=== PATIENT | male | born 1995 | race Caucasian/White ===

== ENCOUNTER 2017-12-03 15:24 | Emergency (ER) | payer OTHER ==
[2017-12-03] MEDS ORDERED: Lidocaine 1% w/Epinephrine 1:100K 20 ML VIAL ONE (15:28)
--- NOTE | 2017-12-03 15:58 | RAD ---
CHEST 1 VIEW: HISTORY: A 22-year-old male with a history of right-sided chest pain. Patient with spontaneous right-side pne umothorax. FINDINGS: There is a small right-sided pneumothorax primarily in the apical region. Heart size is normal. The left lung is clear. No significant associated right lung atelectasis or tension. IMPRESSION: Small right-sided pneumothorax, primarily apical. A call was made to the emergency room, Dr. Silva was in the patient's room putting in a small chest tube at the time of the phone call according to the nurse taking the call. CODE CR POS: OFF
--- NOTE | 2017-12-03 17:10 | RAD ---
ONE VIEW CHEST: Comparison: 12-03-17 History: Right sided pneumothorax, status post chest tube placement. FINDINGS: Interval placement of small bore chest tube in the right hemithorax. Essentially stable right sided p neumothorax. Stable aeration of the lung parenchyma. Stable cardiac silhouette. IMPRESSION: Interval placement of small bore chest tube in the right hemithorax. Persistent right sided pneumotho rax. Results discussed with Dr. Silva on 12-03-17 at 4:36 p.m. Code CR POS: FIORELLA
== END 2017-12-03 16:16 | disposition home or self-care (01) ==
LOC: ERS 15:24
DX: J93.83 Other pneumothorax (principal)
CPT/HCPCS: 32555; 71045; J2001

== ENCOUNTER 2017-12-05 12:16 | Outpatient (CLI) | payer OTHER ==
--- NOTE | 2017-12-05 14:28 | RAD ---
CHEST PA AND LATERAL: History: 22-year-old male with history of dyspnea. FINDINGS: Two views of the chest demonstrate a large pneumothorax which has developed in the right chest with a small heimlich valve in place. The pneumothorax has increased from 2-19-18. Heart size is normal. Th e left lung is clear. IMPRESSION: There is very slight shift of the heart and mediastinum to the left but no significant tension. There is a small amount of fluid in the inferior right pleural space. The left chest is stable. IMPRESSION: Interval increase in size in the previously noted right sided pneumothorax to a large pneumothorax wi th very slight shift of mediastinum and heart to the left and slight flattening of the right hemidiap hragm. Dr. Mendoza's office was contacted and they indicated that he was seeing the patient and had seen the p neumothorax and was treating the patient in that regard. POS: FIORELLA
== END 2017-12-05 12:17 | disposition home or self-care (01) ==
LOC: RAD 12:16
PROVIDERS: ATTEND Thoracic Surgery (Cardiothoracic Vascular Surgery)
DX: J93.9 Pneumothorax, unspecified (principal); J98.6 Disorders of diaphragm
CPT/HCPCS: 71046

== ENCOUNTER 2017-12-06 07:52 | Inpatient (IN) | payer OTHER ==
[2017-12-06] MEDS ORDERED: Bupivacaine 0.5% 10 ML VIAL ONE (08:58)
[2017-12-06] MEDS ORDERED: Lidocaine 1% w/Epinephrine 1:200K 30 ML VIAL ONE (08:58)
--- NOTE | 2017-12-06 09:39 | OP ---
DATE OF PROCEDURE: 12/06/2017 PREOPERATIVE DIAGNOSIS: Spontaneous right pneumothorax with failure of right lung to reexpand with c onservative therapy. POSTOPERATIVE DIAGNOSIS: Spontaneous right pneumothorax with failure of right lung to reexpand with conservative therapy. PROCEDURES: Right thoracoscopy with apical bleb resection and mechanical pleurodesis. SURGEON: Mandeep Mendoza M.D. ANESTHESIA: General endotracheal - Niranjan Stack D.O. ESTIMATED BLOOD LOSS: Minimal. SPECIMEN: Right apex. DESCRIPTION OF PROCEDURE: After consent was obtained, the patient was brought to the operating room and placed in the supine position on the operating room table. Appropriate anesthetic monitor was pl aced and general endotracheal anesthesia induced. The patient was placed in the left lateral decubit us position. Joints were appropriately padded. SCDs were used. Right chest wall was prepped and dr aped in usual sterile fashion. Skin incision was made in the anterior axillary line approximately si xth interspace and the chest sharply entered. Thoracoscope was inserted and the chest explored. Two separate ports were placed for instrumentation. An apical bleb was noted. This was stapled with th e PALMER stapler. Specimen was removed. There were no other blebs or other areas of air leak noted. T he chest was mechanically abraded. A 28 [place] chest tube was placed through the anterior incision. Lungs were inflated under direct vision and filled the chest cavity nicely. The other port incision s were closed with interrupted Vicryl suture. Sterile dressings were applied. The patient was awake daren, extubated, and transferred to the recovery room in stable condition.
[2017-12-06] MEDS ORDERED: Ondansetron HCl/PF 4 MG/2 ML Vial IVP PRN (10:15)
[2017-12-06] MEDS ORDERED: Fentanyl 100 MCG/2 ML VIAL SLOW IVP PRN (10:15)
[2017-12-06] MEDS ORDERED: HYDROcodone/Acetaminophen 5/325 mg Tablet PO PRN ×2 (10:15)
[2017-12-06] MEDS ORDERED: Promethazine HCl 25 MG/ML VIAL IM PRN (10:15)
--- NOTE | 2017-12-06 10:28 | RAD ---
AP VIEW OF THE CHEST: INDICATION: Assess post thoracotomy. COMPARISON: Prior study dated 12/05/17 at 12:41 p.m. FINDINGS: There has been interval placement of a large-bore right-sided chest tube. The tip of the chest tube projects to the right upper hemithorax. There is a moderate-size right-sided pneumothorax which has improved since placement of the large-bore thoracostomy tube. There are pneumonectomy changes involv ing the right lung apex. Previously seen anterior based thoracostomy tube has been removed. The lef t lung is clear. Cardiomediastinal silhouette is normal. No acute osseous abnormality is evident. IMPRESSION: 1. Interval exchange to a large-bore right-sided thoracostomy tube with improvement in the right-monique ed pneumothorax. Moderate residual pneumothorax remains. 2. Post procedure changes of the right apical pneumonectomy. Continued followup is recommended. POS: FIORELLA
[2017-12-06] MEDS ORDERED: CEFAZOLIN/Water 2 GM/20 ML SYRINGE SLOW IVP SCH (11:00)
[2017-12-06 11:26] VITALS: BMI 20.9
[2017-12-06] MEDS: Ketorolac Tromethamine 30 MG/ML VIAL IVP SCH ×2 (12:11→17:26)
[2017-12-06] MEDS ORDERED: Dexamethasone 20 MG/5 ML VIAL ONE (16:38)
[2017-12-06] MEDS ORDERED: Glycopyrrolate 0.2 MG/ML 5 ML SYRINGE ONE (16:38)
[2017-12-06] MEDS ORDERED: Lidocaine 1% PF 5 ML VIAL ONE (16:38)
[2017-12-06] MEDS ORDERED: Propofol 200 MG/20 ML VIAL ONE (16:38)
[2017-12-06] MEDS ORDERED: Ondansetron HCl/PF 4 MG/2 ML Vial ONE (16:38)
[2017-12-06] MEDS: CEFAZOLIN/Water 2 GM/20 ML SYRINGE SLOW IVP SCH (17:16)
[2017-12-07] MEDS: CEFAZOLIN/Water 2 GM/20 ML SYRINGE SLOW IVP SCH ×2 (00:11→09:14)
[2017-12-07] MEDS: Ketorolac Tromethamine 30 MG/ML VIAL IVP SCH ×3 (00:11→12:25)
--- NOTE | 2017-12-07 08:03 | RAD ---
SINGLE VIEW OF THE CHEST: COMPARISON: 12/06/17. HISTORY: Status post thoracotomy. FINDINGS: A single view of the chest shows a normal-size cardiomediastinal silhouette. There is a right-sided chest tube with a stable small to moderate right pneumothorax. Air is seen in the right chest wall. IMPRESSION: Right-sided chest tube with stable pneumothorax. POS: OFF
[2017-12-07 08:13] VITALS: BP 110/68; TEMP 98.3
--- NOTE | 2017-12-07 13:46 | CON ---
DATE OF ADMISSION: 12/06/2017 DATE OF DISCHARGE: 12/07/2017 DIAGNOSIS: Spontaneous right pneumothorax. PROCEDURE: Right thoracoscopy with apical bleb resection. DESCRIPTION OF HOSPITAL STAY: Mr. Minor was brought in with a residual pneumothorax after having a small tube placed at home. He underwent thoracoscopy and resection of apical blebs. He has had a H eimlich valve placed on his chest tube as he still has a small air leak. The apex of his lung has no t completely filled the space yet. He has been instructed on incentive spirometer and cough at home. He will be seen back in the office on Sunday and a repeat chest x-ray performed then in fact.
== END 2017-12-07 13:57 | disposition home or self-care (01) | DRG 165 ==
LOC: ERS 07:52 → SURG B 09:25
PROVIDERS: ADMIT Thoracic Surgery (Cardiothoracic Vascular Surgery); ATTEND Thoracic Surgery (Cardiothoracic Vascular Surgery)
PROC: 0BQK4ZZ Repair Right Lung, Percutaneous Endoscopic Approach (ICD-10-PCS; principal; 2017-12-06)
PROC: 0W9940Z Drainage of Right Pleural Cavity with Drainage Device, Percutaneous Endoscopic Approach (ICD-10-PCS; 2017-12-06)
PROC: 0B5N4ZZ Destruction of Right Pleura, Percutaneous Endoscopic Approach (ICD-10-PCS; 2017-12-06)
DX: J95.812 Postprocedural air leak (principal); J98.6 Disorders of diaphragm
CPT/HCPCS: 32555; 71045; 71046; 88305; J1100; J1885; J2001; J2175; J2250; J2405; J2704; J3010; J3490

== ENCOUNTER 2017-12-10 14:22 | Outpatient (CLI) | payer OTHER ==
--- NOTE | 2017-12-10 15:47 | RAD ---
CHEST 2 VIEWS: Date: 12/10/17 HISTORY: Pneumothorax. COMPARISON: Chest radiograph dated 12/07/17. FINDINGS: The right apical pneumothorax is decreased in size. Suture material in the right lung apex is present . There is still a very small right side pneumothorax in the apex with pleural margin between the pos terior 1st and 2nd ribs. Small volume right hemithorax soft tissue emphysema, improving. IMPRESSION: Marked interval size decrease right pneumothorax. POS: [facility]
== END 2017-12-10 14:23 | disposition home or self-care (01) ==
LOC: RAD 14:22
PROVIDERS: ATTEND Thoracic Surgery (Cardiothoracic Vascular Surgery)
DX: J93.83 Other pneumothorax (principal)
CPT/HCPCS: 71046